=== PATIENT | female | born 1970 | race Caucasian/White ===

== ENCOUNTER 2018-02-27 06:43 | Day surgery (SDC) | payer OTHER ==
[2018-02-24 12:21] VITALS: BMI 44.1
[2018-02-27] MEDS ORDERED: Sodium Chloride 0.9% 10 ML ONE (06:47)
[2018-02-27] MEDS ORDERED: CEFAZOLIN/Water 2 GM/20 ML SYRINGE ONE (06:59)
[2018-02-27] MEDS ORDERED: Fentanyl 100 MCG/2 ML VIAL ONE ×4 (07:16→10:52)
[2018-02-27] MEDS ORDERED: Midazolam HCl 2 mg/2 ml Vial ONE (07:16)
[2018-02-27] MEDS ORDERED: HYDROmorphone 0.5 MG/0.5 ML SYRINGE ONE ×2 (07:16→10:52)
[2018-02-27 07:34] LABS: #Eosinphils 0.4 thou/uL (0.0-0.7); #Lymphocytes 1.6 thou/uL (1.20-3.40); #Monocytes 0.4 thou/uL (0.11-0.59); #Neutrophils 5.1 thou/uL (1.40-6.50); %Basophils 0.3 % (0.0-1.0); %Eosinophils 5.7 % (0.0-10.0); %Lymphocytes 21.6 % (21.0-51.0); %Monocytes 5.5 % (0.0-10.0); %Neutrophils 66.9 % (42.0-75.0); Hemoglobin 12.2 g/dL (12.0-16.0); Mean Corpuscular HGB CONC 34.2 g/dL (32.0-36.0); Mean Corpuscular Hemoglobin 30.7 pg (27.0-31.0); Mean Corpuscular Volume 89.6 fL (78.0-98.0); Mean Platelet Volume 7.2 fL (7.4-10.4); Platelet Count 153 thou/uL (130-400); RBC Distribution Width 12.3 % (11.5-14.5); Red Blood Cell (RBC) Count 3.99 mill/uL (4.20-5.40); White Blood Cell (WBC) Count 7.6 thou/uL (4.8-10.8)
[2018-02-27 07:52] LABS: Anion Gap 13 mmol/L (10-20); BUN (Urea Nitrogen) 19 mg/dL (7.0-18.7); Calc. Creatinine Clearance 159 mL/min (70-130); Calcium 8.8 mg/dL (7.8-10.44); Carbon Dioxide 20 mmol/L (22-29); Chloride 112 mmol/L (98-107); Estimated GFR-MDRD 73; Glucose 126 mg/dL (70-105); Potassium 4.2 mmol/L (3.5-5.1); Sodium 141 mmol/L (136-145)
--- NOTE | 2018-02-27 09:39 | OP ---
DATE OF PROCEDURE: 02/27/2018 SURGEON: Dharmesh Luther M.D. GRID OPERATOR: Be Sharp PA-C PROCEDURE: Anterior cervical discectomy C4-5, interbody arthrodesis, intravertebral biomechanical de vice, local morselized autograft, demineralized bone matrix, anterior titanium instrumentation C4-5. PROCEDURE IN DETAIL: The patient was brought to the operating room and intubated. She was positione d supine with head in modest extension on a gel-filled donut. Incision was made in the right precerv ical area and dissecting medial to the sternocleidomastoid muscle, identified the anterior cervical s pine and our level was confirmed by x-ray. We placed distraction across C4-5 and debrided the intrav ertebral disc. 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 After complete decompression, the intraverteb ral disc was achieved. The bony endplates were decorticated for the purpose of arthrodesis and appro priately sized intravertebral biomechanical PEEK device was brought into the field, filled with demin eralized bone matrix and local morselized autograft, and tapped into place securely at C4-5. Next, a n anterior plate was brought in the field and secured to C4 and C5 using two 14 mm screws at each lev el. The wound was then extensively irrigated, immaculate hemostasis was secured, and the wound was c losed in anatomic layers over a drain.
[2018-02-27] MEDS ORDERED: Ondansetron HCl/PF 4 MG/2 ML Vial IVP PRN ×2 (09:47→11:02)
[2018-02-27] MEDS ORDERED: diphenhydrAMINE 25 MG CAP PO PRN (10:58)
[2018-02-27] MEDS ORDERED: Promethazine HCl 12.5 MG SUPP PR PRN (10:58)
[2018-02-27] MEDS ORDERED: diphenhydrAMINE 50 MG/ML VIAL IVP PRN (10:58)
[2018-02-27] MEDS ORDERED: Morphine 4 MG/ML Carpuject SLOW IVP PRN (10:58)
[2018-02-27] MEDS ORDERED: traMADol HCl 50 MG TAB PO PRN (10:58)
[2018-02-27] MEDS ORDERED: Mag-Al 1200 mg/1200 mg/30 ML UDCUP PO PRN (10:58)
[2018-02-27] MEDS ORDERED: Promethazine 25 MG TAB PO PRN (10:58)
[2018-02-27] MEDS ORDERED: Milk Of Magnesia 30 ML UDCUP PO PRN (10:58)
[2018-02-27] MEDS ORDERED: HYDROcodone/Acetaminophen 10/325 mg Tablet PO PRN (10:58)
[2018-02-27] MEDS ORDERED: Promethazine HCl 25 MG/ML VIAL IM PRN (10:58)
[2018-02-27] MEDS: tiZANidine HCl 4 MG TAB PO PRN (11:57)
[2018-02-27] MEDS: HYDROcodone/Acetaminophen 10/325 mg Tablet PO PRN (12:29)
[2018-02-27] MEDS ORDERED: CEFAZOLIN/Water 2 GM/20 ML SYRINGE SLOW IVP SCH (14:00)
[2018-02-27] MEDS ORDERED: Dexamethasone 20 MG/5 ML VIAL ONE (14:49)
[2018-02-27] MEDS ORDERED: PROPOFOL 200 MG/20 ML VIAL ONE (14:49)
[2018-02-27] MEDS ORDERED: Lidocaine 1% PF 5 ML VIAL ONE (14:49)
[2018-02-27] MEDS ORDERED: Glycopyrrolate 0.2 MG/ML 5 ML SYRINGE ONE (14:49)
[2018-02-27] MEDS ORDERED: Ondansetron HCl/PF 4 MG/2 ML Vial ONE (14:49)
[2018-02-27] MEDS: traMADol HCl 50 MG TAB PO PRN ×2 (16:41→23:36)
[2018-02-27] MEDS ORDERED: Cepastat Lozenges 1 LOZ PO PRN (18:22)
[2018-02-27] MEDS ORDERED: Dextrose 50% Abboject 50 ML SYRINGE SLOW IVP PRN (19:19)
[2018-02-27] MEDS ORDERED: Insulin Regular 300 UNITS/3 ML VIAL SC PRN ×2 (19:19)
[2018-02-27] MEDS ORDERED: Dextrose 5% in Water 1,000 ML IV PRN (19:19)
--- NOTE | 2018-02-27 19:26 | PDOC.PN ---
- Subjective Encounter Start Date: 02/27/18 Encounter Start Time: 14:00 Patient seen and examined for med mngt. Follows [facility] at [place]. No CP/ SOB. Pain over the surgical site +. - Objective MAR Reviewed: Yes Vital Signs & Weight: Vital Signs (12 hours) Temp Pulse Resp BP Pulse Ox 02/27/18 15:00 98.2 F 76 18 146/93 H 98 02/27/18 11:30 98.2 F 76 18 02/27/18 11:15 97.9 F 66 18 135/94 H 95 Weight Weight 265 lb Result Diagrams: 02/27/18 07:28 02/27/18 07:28 EKG Reviewed by me: Yes (SR) Phys Exam - Physical Examination Constitutional: NAD Respiratory: no wheezing, no rales, no rhonchi Cardiovascular: RRR, no rub Gastrointestinal: soft, non-tender, positive bowel sounds Musculoskeletal: no edema Neurological: non-focal, moves all 4 limbs Psychiatric: A&O x 3 Dx/Plan - Plan plan discussed w/ family, DVT proph w/SCDs IMPRESSION: 1. DM2 2. Chronic pain syndrome 3. Mild persistent Asthma 4. Morbid Obesity BMI 44.1 5. GERD 6. HLD 7. Suspected SHAWNA PLAN: Add low dose Sliding scale Cont Glyburide Cont PPI Add PRN Nebs Pain medications per Primary service Cont Gabapentin, Montelukast, Lyrica and Cymbalta High risk of respiratory depression - Will add continuous pulse ox and frequent neurochecks Review of Systems - Review of Systems Respiratory: negative: Cough, Dry, Shortness of Breath, Hemoptysis, SOB with Excertion, Pleuritic Pain, Sputum, Wheezing Cardiovascular: negative: chest pain, palpitations, orthopnea, paroxysmal nocturnal dyspnea, edema, light headedness, other - Medications/Allergies Allergies/Adverse Reactions: Allergies Allergy/AdvReac Type Severity Reaction Status Date / Time dobutamine Allergy Verified 02/24/18 17:30 Iodinated Contrast- Oral and Allergy Verified 02/24/18 17:30 IV Dye ketorolac Allergy Verified 02/24/18 17:30 metformin Allergy Verified 02/24/18 17:30 oxymorphone Allergy Verified 02/24/18 17:30 phenobarbital Allergy Verified 02/24/18 17:30 prochlorperazine Allergy Verified 02/24/18 17:30 venlafaxine Allergy Verified 02/24/18 17:30 Medications: Current Medications Hydrocodone Bitart/Acetaminophen ([place] 10/325) 1 tab PO Q4H PRN PRN Reason: PAIN (1-3) Hydrocodone Bitart/Acetaminophen ([place] 10/325) 2 tab PO Q4H PRN PRN Reason: PAIN (4-6) Last Admin: 02/27/18 12:29 Dose: 2 tab Hydrocodone Bitart/Acetaminophen ([place] 10/325) 1 tab PO TID ASUNCION Al Hydroxide/Mg Hydroxide (Maalox) 30 ml PO Q4H PRN PRN Reason: Heartburn or Indigestion Albuterol/Ipratropium (Duoneb) 3 ml NEB [id number] PRN PRN Reason: SOB &/or Wheezing Cefazolin Sodium (Ancef) 2 gm SLOW IVP Q8HR [facility] Last Admin: 02/27/18 16:46 Dose: 2 gm Dextrose/Water (Dextrose 50%) 25 gm SLOW IVP PRN PRN PRN Reason: Hypoglycemia Diphenhydramine HCl (Benadryl) 25 mg PO Q6H PRN PRN Reason: Itching Diphenhydramine HCl (Benadryl) 25 mg IVP Q6H PRN PRN Reason: Itching Duloxetine HCl (Cymbalta) 60 mg PO HS ASUNCION Famotidine (Pepcid) 20 mg PO BID ASUNCION Gabapentin (Neurontin) 300 mg PO TID ASUNCION Glucagon (Glucagon) 1 mg IM PRN PRN PRN Reason: Hypoglycemia Glyburide (Micronase) 2.5 mg PO BID-AC ASUNCION Sodium Chloride (Normal Saline 0.9%) 1,000 mls @ 75 mls/hr IV .[id number] ASUNCION Dextrose/Water (D5w) 1,000 mls @ 0 mls/hr IV .Q0M PRN; As Directed PRN Reason: Hypoglycemia Insulin Human Regular (Humulin R) 0 units SC .MILD SLIDING SCALE PRN PRN Reason: Mild Correctional Scale Insulin Human Regular (Humulin R) 0 units SC .BEDTIME SLIDING SC PRN PRN Reason: Bedtime Correctional Scale Magnesium Hydroxide (Milk Of Magnesium) 30 ml PO Q12H PRN PRN Reason: Constipation Montelukast Sodium (Singulair) 10 mg PO QPM ASUNCION Morphine Sulfate (Morphine) 2 mg SLOW IVP Q1H PRN PRN Reason: Moderate Breakthrough Pain Morphine Sulfate (Morphine) 4 mg SLOW IVP Q1H PRN PRN Reason: Severe Breakthrough Pain Morphine Sulfate (Ms Contin) 15 mg PO 0200,1000,1800 [facility] Ondansetron HCl (Zofran) 4 mg IVP Q8H PRN PRN Reason: Nausea/Vomiting Pantoprazole Sodium (Protonix) 40 mg PO HS [facility] Pregabalin (Lyrica) 300 mg PO BID [facility] Promethazine HCl (Phenergan) 12.5 mg IM Q4H PRN PRN Reason: Nausea/Vomiting Promethazine HCl (Phenergan) 12.5 mg PO Q4H PRN PRN Reason: Nausea/Vomiting Promethazine HCl (Phenergan Suppository) 12.5 mg CO Q4H PRN PRN Reason: Nausea/Vomiting Simvastatin (Zocor) 20 mg PO HS [facility] Sodium Chloride (Flush - Normal Saline) 10 ml IVF Q12HR [facility] Sodium Chloride (Flush - Normal Saline) 10 ml IVF PRN PRN PRN Reason: Saline Flush Throat Lozenges (Cepastat Lozenges) 1 vazquez PO PRN PRN PRN Reason: Cough Tizanidine HCl (Zanaflex) 4 mg PO Q6H PRN PRN Reason: MUSCLE SPASM Last Admin: 02/27/18 11:57 Dose: 4 mg Topiramate (Topamax) 200 mg PO BID [facility] Tramadol HCl (Ultram) 50 mg PO Q6H PRN PRN Reason: PAIN (1-3) Tramadol HCl (Ultram) 100 mg PO Q6H PRN PRN Reason: PAIN (4-6) Last Admin: 02/27/18 16:41 Dose: 100 mg Trazodone HCl (Desyrel) 300 mg PO QAM [facility]
[2018-02-27] MEDS: Sodium Chloride 0.9% 1,000 ML IV SCH (19:51)
[2018-02-27] MEDS: Topiramate 100 MG TAB PO SCH ×2 (20:49→21:25)
[2018-02-27] MEDS: HYDROcodone/Acetaminophen 10/325 mg Tablet PO SCH (20:50)
[2018-02-27] MEDS: Gabapentin 300 MG CAP PO SCH (20:50)
[2018-02-27] MEDS: Famotidine 20 MG TAB PO SCH (20:50)
[2018-02-27] MEDS: Pregabalin 75 MG CAP PO SCH (20:51)
[2018-02-27] MEDS ORDERED: Simvastatin 20 MG TAB PO SCH (21:00)
[2018-02-27] MEDS ORDERED: DULoxetine 60 MG CAP PO SCH (21:00)
[2018-02-27] MEDS ORDERED: Montelukast Sodium 10 mg Tablet PO SCH (21:00)
[2018-02-27] MEDS ORDERED: Morphine ER 15 MG TAB PO SCH (22:00)
[2018-02-28] MEDS: CEFAZOLIN/Water 2 GM/20 ML SYRINGE SLOW IVP SCH ×2 (00:57→09:44)
[2018-02-28] MEDS: Morphine ER 15 MG TAB PO SCH ×2 (01:53→11:08)
[2018-02-28] MEDS: HYDROcodone/Acetaminophen 10/325 mg Tablet PO PRN (04:20)
[2018-02-28] MEDS: Sodium Chloride 0.9% 1,000 ML IV SCH (05:35)
[2018-02-28] MEDS: tiZANidine HCl 4 MG TAB PO PRN (06:46)
[2018-02-28] MEDS ORDERED: glyBURIDE 2.5 MG TAB PO SCH (07:30)
[2018-02-28 07:57] VITALS: BP 135/82; TEMP 98.7
[2018-02-28] MEDS ORDERED: traZODone HCl 150 MG TAB PO SCH (09:00)
[2018-02-28] MEDS: Famotidine 20 MG TAB PO SCH (09:44)
[2018-02-28] MEDS: Gabapentin 300 MG CAP PO SCH (09:44)
[2018-02-28] MEDS: HYDROcodone/Acetaminophen 10/325 mg Tablet PO SCH (09:44)
[2018-02-28] MEDS: Pregabalin 75 MG CAP PO SCH (09:45)
[2018-02-28] MEDS: Topiramate 100 MG TAB PO SCH (09:46)
== END 2018-02-28 11:22 | disposition home or self-care (01) ==
LOC: SDC 06:43 → SURG A 10:40 → SDC 02-28 11:22
PROVIDERS: ATTEND Neurological Surgery
PROC: 0RG1070 Fusion of Cervical Vertebral Joint with Autologous Tissue Substitute, Anterior Approach, Anterior Column, Open Approach (ICD-10-PCS; principal; 2018-02-27)
PROC: 0RG10J0 Fusion of Cervical Vertebral Joint with Synthetic Substitute, Anterior Approach, Anterior Column, Open Approach (ICD-10-PCS; principal; 2018-02-27)
PROC: 0RG10A0 Fusion of Cervical Vertebral Joint with Interbody Fusion Device, Anterior Approach, Anterior Column, Open Approach (ICD-10-PCS; principal; 2018-02-27)
PROC: 0RB30ZZ Excision of Cervical Vertebral Disc, Open Approach (ICD-10-PCS; principal; 2018-02-27)
DX: M50.121 Cervical disc disorder at C4-C5 level with radiculopathy (principal); M48.02 Spinal stenosis, cervical region; M79.7 Fibromyalgia; E11.9 Type 2 diabetes mellitus without complications; E78.5 Hyperlipidemia, unspecified; G89.4 Chronic pain syndrome; K21.9 Gastro-esophageal reflux disease without esophagitis; J45.30 Mild persistent asthma, uncomplicated; E66.01 Morbid (severe) obesity due to excess calories; Z91.041 Radiographic dye allergy status; Z88.5 Allergy status to narcotic agent; Z88.8 Allergy status to other drugs, medicaments and biological substances; Z68.41 Body mass index [BMI] 40.0-44.9, adult; Z79.4 Long term (current) use of insulin; Z79.899 Other long term (current) drug therapy
CPT/HCPCS: 36416; 76001; 80048; 85025; 93005; 93010; A4216; C1713; C1776; J1100; J1170; J1815; J2001; J2250; J2270; J2405; J2704; J3010; J3490

== ENCOUNTER 2018-09-07 09:02 | Outpatient (CLI) | payer OTHER ==
--- NOTE | 2018-09-07 09:32 | RAD ---
FOUR VIEWS CERVICAL SPINE: History: Follow up radiculopathy. Technique: AP, lateral, swimmer's, open mouth odontoid view cervical spine obtained. FINDINGS: Four views of the cervical spine demonstrates ACDF with fusion of the C4 and C5 vertebra. Plates and screws are in good position. No evidence of stanton or retrolisthesis is seen. The odontoid is unremarkable. IMPRESSION: C4-5 ACDF. POS: [facility]
== END 2018-09-07 09:03 | disposition home or self-care (01) ==
LOC: TBSIIMAG 09:02
PROVIDERS: ATTEND Neurological Surgery
DX: M54.12 Radiculopathy, cervical region (principal); Z98.1 Arthrodesis status
CPT/HCPCS: 72040